=== PATIENT | female | born 1985 | race Caucasian/White ===

== ENCOUNTER → 2017-12-01 | Outpatient (REF) | payer OTHER ==
[2017-12-03 14:13] LABS: HPV HYBRID CAPTURE II Negative (Negative)
== END ==
LOC: M LAB REF 18:08
DX: Z12.4 Encounter for screening for malignant neoplasm of cervix (principal)

== ENCOUNTER 2024-07-04 19:51 | Emergency (ER) | payer OTHER ==
[~2024-07-04] VITALS: Ht 149.9 cm; Wt 79.7 kg
[~2024-07-04 19:51] MED LIST: EXTR500C4 PO; MOTR200T44 PO; PRENTAB7 PO
[2024-07-04 19:57] VITALS: BP 160/109; TEMP 97.3; O2SAT 99
[2024-07-04] MEDS ORDERED: FEXO-193 PO (20:04)
[2024-07-04] MEDS ORDERED: BUPR150T12 PO (20:04)
[2024-07-04] MEDS ORDERED: LISI10TA22 PO (20:05)
[2024-07-04] MEDS ORDERED: LEVO25TA5 PO (20:05)
[2024-07-04] MEDS ORDERED: PROP40TA62 PO (20:06)
[2024-07-04] MEDS ORDERED: SUMA50TA2 PO (20:06)
[2024-07-04] MEDS ORDERED: ONDA-282 PO (22:17)
== END 2024-07-04 22:35 | disposition home or self-care (01) ==
LOC: M ED 19:51
DX: S06.0X0A Concussion without loss of consciousness, initial encounter (principal); Y04.8XXA Assault by other bodily force, initial encounter; Y92.89 Other specified places as the place of occurrence of the external cause; Y93.9 Activity, unspecified; Y99.9 Unspecified external cause status; E03.9 Hypothyroidism, unspecified; Z79.899 Other long term (current) drug therapy